=== PATIENT | male | born 1940 | race African-American/Black ===

== ENCOUNTER 2021-01-20 05:39 | Inpatient (IN) ==
[2021-01-14 12:11] LABS: Basophils % 0.6 % (0.0-0.8); Eosinophils # 0.1 10*3/uL (0.0-0.87); Eosinophils % 2.1 % (0.00-10.9); Hematocrit 41.4 VOL% (42.0-52.0); Hemoglobin 13.6 GM/DL (14.0-18.0); Immature Granulocytes % 0.2 %; Immature Granulocytes Absolute 0.01 #; Lymphocytes # 1.8 10*3/uL (1.4-4.0); Lymphocytes % 33.8 % (21.2-54.2); Mean Corpuscular HGB Conc 32.9 GM/DL (32-36); Mean Corpuscular Volume 90.2 FL (87-102); Mean Platelet Volume 9.5 FL (9.6-12.0); Monocytes % 11.7 % (1.7-12.7); Neutrophils % 51.6 % (38.7-73.9); Platelet Count 252 T/CUMM (130-400); Red Blood Count 4.59 MC/CUMM (3.8-5.5); Red Cell Distribution Width 14.4 % (9.3-17.3); White Blood Count 5.3 T/CUMM (4-12)
[2021-01-14 12:35] LABS: Bilirubin,Urine Negative (Negative); Blood, Urine Negative (Negative); Glucose,Urine (UA) 50 mg/dL (Negative); Ketones,Urine Negative (Negative); Mucus,Urine Moderate /LPF (Occasional); Nitrite,Urine Negative (Negative); Protein,Urine 30 MG/DL; RBC,Urine 1 /HPF (0-4); Urine Appearance CLEAR (Clear); Urine Color Yellow (Yellow); Urine Specific Gravity 1.026 (1.001-1.035); Urine Urobilinogen < 2.0 EU/DL (0.2-1.0)
[2021-01-14 12:36] LABS: Calcium 9.7 MG/DL (8.5-10.1); Osmolality,Calculated 276.7 MOS/KG (273-304)
[2021-01-20] MEDS ORDERED: ALVIMOPAN 12 MG CAPSULE PO ONE (06:30)
[2021-01-20] MEDS ORDERED: cefTRIAXone 1,000 MG in SYRINGE 1 EACH IV ONE (06:30)
[2021-01-20] MEDS ORDERED: LACTATED RINGERS 1,000 ML IV SCH (06:30)
[2021-01-20] MEDS ORDERED: SODIUM PHOSPHATE ENEMA 133 ML BOTTLE RECTAL ONE (06:30)
[2021-01-20] MEDS ORDERED: SUFentanil 50 MCG/ML AMP ONE (06:32)
[2021-01-20] MEDS ORDERED: GLYCOPYRROLATE 0.4 MG/2 ML VIAL ONE (07:22)
[2021-01-20] MEDS ORDERED: propofoL 200 MG/20 ML VIAL IV ONE (07:37)
[2021-01-20] MEDS ORDERED: ROCURONIUM 50 MG/5 ML VIAL IV ONE ×2 (07:37→07:59)
[2021-01-20] MEDS ORDERED: PHENYLEPHRINE 1 MG/10 ML SYRINGE IV ONE (07:37)
[2021-01-20] MEDS ORDERED: LIDOCAINE 2% 5 ML VIAL ONE (07:37)
[2021-01-20] MEDS ORDERED: DEXAMETHASONE 4 MG/1 ML VIAL ONE (07:38)
[2021-01-20] MEDS ORDERED: ONDANSETRON 4 MG/2 ML VIAL ONE (07:38)
[2021-01-20] MEDS ORDERED: LACTATED RINGERS 1,000 ML IV ONE (07:54)
[2021-01-20] MEDS ORDERED: ACETAMINOPHEN 1,000 MG/100 ML VIAL IV ONE (08:10)
[2021-01-20] MEDS ORDERED: DESFLURANE 1 UNIT/15 MINUTE INH ONE ×3 (08:20→11:46)
[2021-01-20] MEDS ORDERED: hydrALAZINE 20 MG/1 ML VIAL ONE (09:40)
[2021-01-20] MEDS ORDERED: SUGAMMADEX 200 MG/2 ML VIAL IV ONE (11:15)
[2021-01-20] MEDS ORDERED: SEVOFLURANE 1 UNIT/15 MINUTE INH ONE ×3 (11:40→11:46)
[2021-01-20] MEDS ORDERED: ONDANSETRON 4 MG/2 ML VIAL IV PRN ×2 (11:41→12:12)
[2021-01-20] MEDS ORDERED: oxyCODONE/ACETAMINOPHEN 5-325 MG TABLET PO PRN (11:41)
[2021-01-20 12:14] LABS: Bilirubin,Urine Negative (Negative); Blood, Urine Small mg/dL (Negative); Glucose,Urine (UA) Negative (Negative); Ketones,Urine Negative (Negative); Mucus,Urine Occasional /LPF (Occasional); Nitrite,Urine Negative (Negative); Protein,Urine Negative; RBC,Urine 1 /HPF (0-4); Urine Appearance CLEAR (Clear); Urine Color Yellow (Yellow); Urine Specific Gravity 1.016 (1.001-1.035); Urine Urobilinogen < 2.0 EU/DL (0.2-1.0)
[2021-01-20] MEDS: HYDROmorphone 2 MG/1 ML VIAL IV PRN ×5 (12:22→20:39)
[2021-01-20] MEDS: metFORMIN 500 MG TABLET PO SCH (17:20)
[2021-01-20] MEDS: oxyCODONE/ACETAMINOPHEN 5-325 MG TABLET PO PRN (17:21)
[2021-01-20] MEDS: OXYBUTYNIN XL 10 MG TABLET PO SCH (17:21)
[2021-01-20] MEDS: SODIUM CHLORIDE 0.9% 1,000 ML IV SCH (17:28)
[2021-01-20] MEDS: ALVIMOPAN 12 MG CAPSULE PO SCH (20:37)
[2021-01-20] MEDS: MEMANTINE 10 MG TABLET PO SCH (20:37)
[2021-01-20] MEDS: METOPROLOL TARTRATE 50 MG TABLET PO SCH (20:37)
[2021-01-20] MEDS: NAPROXEN 250 MG TABLET PO SCH (20:37)
[2021-01-20] MEDS: amLODIPine 5 MG TABLET PO SCH (20:38)
[2021-01-20] MEDS: INSULIN LISPRO 100 UNIT/ML SUBCUT SCH (21:31)
[2021-01-21] MEDS: SODIUM CHLORIDE 0.9% 1,000 ML IV SCH (05:56)
[2021-01-21 06:14] LABS: Basophils % 0.1 % (0.0-0.8); Eosinophils % 0.1 % (0.00-10.9); Hematocrit 35.3 VOL% (42.0-52.0); Hemoglobin 11.9 GM/DL (14.0-18.0); Immature Granulocytes % 0.5 %; Immature Granulocytes Absolute 0.05 #; Lymphocytes # 1.9 10*3/uL (1.4-4.0); Lymphocytes % 18.2 % (21.2-54.2); Mean Corpuscular HGB Conc 33.7 GM/DL (32-36); Mean Corpuscular Volume 89.6 FL (87-102); Mean Platelet Volume 9.4 FL (9.6-12.0); Neutrophils % 72.1 % (38.7-73.9); Platelet Count 216 T/CUMM (130-400); Red Blood Count 3.94 MC/CUMM (3.8-5.5); Red Cell Distribution Width 14.5 % (9.3-17.3); White Blood Count 10.3 T/CUMM (4-12)
[2021-01-21 06:31] LABS: Calcium 8.3 MG/DL (8.5-10.1); Osmolality,Calculated 278.5 MOS/KG (273-304); Potassium 3.8 MMOL/L (3.5-5.1)
[2021-01-21] MEDS: MEMANTINE 10 MG TABLET PO SCH ×2 (09:30→20:43)
[2021-01-21] MEDS: amLODIPine 5 MG TABLET PO SCH ×2 (09:30→20:43)
[2021-01-21] MEDS: metFORMIN 500 MG TABLET PO SCH ×2 (09:30→18:28)
[2021-01-21] MEDS: GLIMEPIRIDE 2 MG TABLET PO SCH (09:30)
[2021-01-21] MEDS: OXYBUTYNIN XL 10 MG TABLET PO SCH (09:30)
[2021-01-21] MEDS: NAPROXEN 250 MG TABLET PO SCH ×2 (09:30→20:43)
[2021-01-21] MEDS: allopurinoL 100 MG TABLET PO SCH (09:30)
[2021-01-21] MEDS: ROSUVASTATIN 10 MG TABLET PO SCH (09:30)
[2021-01-21] MEDS: METOPROLOL TARTRATE 50 MG TABLET PO SCH ×2 (09:30→20:43)
[2021-01-21] MEDS: ALVIMOPAN 12 MG CAPSULE PO SCH ×2 (09:31→20:44)
[2021-01-21] MEDS: INSULIN LISPRO 100 UNIT/ML SUBCUT SCH ×4 (09:53→20:45)
[2021-01-21] MEDS: oxyCODONE/ACETAMINOPHEN 5-325 MG TABLET PO PRN (12:27)
[2021-01-21] MEDS: HYDROmorphone 2 MG/1 ML VIAL IV PRN (19:57)
[2021-01-22 04:13] LABS: Basophils % 0.2 % (0.0-0.8); Eosinophils # 0.2 10*3/uL (0.0-0.87); Eosinophils % 2.4 % (0.00-10.9); Hematocrit 37.1 VOL% (42.0-52.0); Hemoglobin 12.3 GM/DL (14.0-18.0); Immature Granulocytes % 0.4 %; Immature Granulocytes Absolute 0.03 #; Lymphocytes # 1.7 10*3/uL (1.4-4.0); Mean Corpuscular HGB Conc 33.2 GM/DL (32-36); Mean Corpuscular Volume 89.6 FL (87-102); Mean Platelet Volume 9.4 FL (9.6-12.0); Monocytes % 9.2 % (1.7-12.7); Neutrophils % 66.8 % (38.7-73.9); Platelet Count 225 T/CUMM (130-400); Red Blood Count 4.14 MC/CUMM (3.8-5.5); Red Cell Distribution Width 14.4 % (9.3-17.3); White Blood Count 8.3 T/CUMM (4-12)
[2021-01-22 04:53] LABS: Albumin 2.8 G/DL (3.4-5.0); Bilirubin,Total 0.7 MG/DL (0.2-1.0); Calcium 8.4 MG/DL (8.5-10.1); Osmolality,Calculated 275.7 MOS/KG (273-304); Potassium 3.5 MMOL/L (3.5-5.1); Thyroid Stimulating Hormone 2.07 uIU/ml (0.358-3.74); Total Protein 7.2 G/DL (5.0-7.5)
[2021-01-22] MEDS: INSULIN LISPRO 100 UNIT/ML SUBCUT SCH ×2 (08:09→11:37)
[2021-01-22] MEDS: metFORMIN 500 MG TABLET PO SCH (08:30)
[2021-01-22] MEDS: METOPROLOL TARTRATE 50 MG TABLET PO SCH (08:30)
[2021-01-22] MEDS: allopurinoL 100 MG TABLET PO SCH (08:30)
[2021-01-22] MEDS: OXYBUTYNIN XL 10 MG TABLET PO SCH (08:31)
[2021-01-22] MEDS: GLIMEPIRIDE 2 MG TABLET PO SCH (08:31)
[2021-01-22] MEDS: ROSUVASTATIN 10 MG TABLET PO SCH (08:31)
[2021-01-22] MEDS: NAPROXEN 250 MG TABLET PO SCH (08:31)
[2021-01-22] MEDS: MEMANTINE 10 MG TABLET PO SCH (08:32)
[2021-01-22] MEDS: amLODIPine 5 MG TABLET PO SCH (08:32)
[2021-01-22] MEDS: ALVIMOPAN 12 MG CAPSULE PO SCH (08:32)
[2021-01-22 11:50] VITALS: BP 158/86
== END 2021-01-22 13:35 | disposition home or self-care (01) | DRG 708 ==
LOC: N.OR 05:39 → N.SDSINP 05:39 → N.3E 13:21
PROVIDERS: ADMIT Urology; ATTEND Urology